=== PATIENT | male | born 1980 | race Caucasian/White ===

== ENCOUNTER 2019-01-11 22:06 | Inpatient (IN) | payer OTHER ==
[~2019-01-11] VITALS: Ht 165.1 cm; Wt 104.1 kg
[2019-01-11 22:23] VITALS: Ht 165.1 cm; Wt 104.1 kg
[2019-01-11 23:07] LABS: BASOPHIL % 0.4 % (0-2); PLATELET COUNT 199 x10^3mcL (130-400)
[2019-01-11 23:17] LABS: CALCIUM 9.1 mg/dL (8.5-10.1); CARBON DIOXIDE 30.3 mmol/L (21-32); CHLORIDE SERUM 101 mmol/L (98-107); CREATININE SERUM 0.9 mg/dL (0.7-1.3); GFR1 > 60 mL/min; GLUCOSE SERUM 110 mg/dL (74-106); POTASSIUM SERUM 4.3 mmol/L (3.5-5.1); SODIUM SERUM 139 mmol/L (136-145)
[2019-01-11 23:19] LABS: ALBUMIN 3.9 g/dL (3.4-5.0); ALKALINE PHOSPHATASE 52 U/L (46-116); ALT/SGPT 26 U/L (16-63); AST/SGOT 13 U/L (15-37); BILIRUBIN TOTAL 0.5 mg/dL (0.20-1.00); LIPASE 165 IU/L (73-393); TOTAL PROTEIN, SERUM 7.8 g/dL (6.4-8.2)
[2019-01-11 23:32] LABS: RED CELL DISTRIBUTION WIDTH 14.6 % (11.5-14.5)
[2019-01-11 23:42] LABS: AMPHETAMINE QUAL UR NONE DETECTED (See below)
[2019-01-12] MEDS ORDERED: ISOSORBIDE MONO60 MG PO (01:01)
[2019-01-12] MEDS ORDERED: VIT D3 PO (01:01)
[2019-01-12] MEDS ORDERED: CRESTOR40 M1 PO (01:01)
[2019-01-12] MEDS ORDERED: CLARITIN LIQUI-10 MG PO (01:02)
[2019-01-12] MEDS ORDERED: ASPIR 8181 MG PO (01:02)
[2019-01-12] MEDS ORDERED: PROTONIX40 MG PO (01:02)
[2019-01-12] MEDS ORDERED: BRILINTA90 M1 PO (01:02)
[2019-01-12] MEDS ORDERED: HYDROCHLOROTHIA25 MG PO (01:02)
[2019-01-12] MEDS ORDERED: CARTIA XT240 M1 PO (01:03)
[2019-01-12 02:05] LABS: MAGNESIUM 2.3 mg/dL (1.8-2.4); PHOSPHOROUS 3.6 mg/dL (2.5-4.9)
[2019-01-12 02:10] VITALS: BP 125/64
[2019-01-12 05:34] LABS: microscopic required? NO
[2019-01-12 05:46] VITALS: BP 131/75
[2019-01-12 05:54] LABS: UA SPECIFIC GRAVITY 1.025 (1.005-1.035); urine erythrocyte NEGATIVE (NEGATIVE)
[2019-01-12 06:21] LABS: BASOPHIL % 0.4 % (0-2); PLATELET COUNT 169 x10^3mcL (130-400)
[2019-01-12 06:38] LABS: RED CELL DISTRIBUTION WIDTH 14.7 % (11.5-14.5)
[2019-01-12 06:40] LABS: CALCIUM 8.9 mg/dL (8.5-10.1); CHLORIDE SERUM 105 mmol/L (98-107); CREATININE SERUM 0.8 mg/dL (0.7-1.3); GFR1 > 60 mL/min; GLUCOSE SERUM 100 mg/dL (74-106); MAGNESIUM 2.4 mg/dL (1.8-2.4); PHOSPHOROUS 4.3 mg/dL (2.5-4.9); POTASSIUM SERUM 4.4 mmol/L (3.5-5.1); SODIUM SERUM 142 mmol/L (136-145)
[2019-01-12 09:21] VITALS: BP 116/58
[2019-01-12 12:34] VITALS: BP 101/43
[2019-01-12 16:29] VITALS: BP 100/44
[2019-01-12 21:16] VITALS: BP 108/40
[2019-01-13 05:53] VITALS: BP 103/48
[2019-01-13 06:35] LABS: BASOPHIL % 0.4 % (0-2); PLATELET COUNT 141 x10^3mcL (130-400)
[2019-01-13 06:43] LABS: RED CELL DISTRIBUTION WIDTH 14.8 % (11.5-14.5)
[2019-01-13 06:45] LABS: CALCIUM 8.2 mg/dL (8.5-10.1); CARBON DIOXIDE 29.3 mmol/L (21-32); CHLORIDE SERUM 106 mmol/L (98-107); CREATININE SERUM 0.6 mg/dL (0.7-1.3); GFR1 > 60 mL/min; GLUCOSE SERUM 93 mg/dL (74-106); POTASSIUM SERUM 4.2 mmol/L (3.5-5.1); SODIUM SERUM 141 mmol/L (136-145)
[2019-01-13 10:34] VITALS: BP 111/49
[2019-01-13 14:20] VITALS: BP 103/45
[2019-01-13 17:47] VITALS: BP 103/51
[2019-01-13 20:41] VITALS: BP 110/43
[2019-01-14 05:17] VITALS: BP 108/61
[2019-01-14 06:41] LABS: CALCIUM 8.5 mg/dL (8.5-10.1); CARBON DIOXIDE 31.7 mmol/L (21-32); CHLORIDE SERUM 106 mmol/L (98-107); CREATININE SERUM 0.8 mg/dL (0.7-1.3); GFR1 > 60 mL/min; GLUCOSE SERUM 95 mg/dL (74-106); POTASSIUM SERUM 4.5 mmol/L (3.5-5.1); SODIUM SERUM 142 mmol/L (136-145)
[2019-01-14 07:17] LABS: BASOPHIL % 0.5 % (0-2); PLATELET COUNT 148 x10^3mcL (130-400); RED CELL DISTRIBUTION WIDTH 13.8 % (11.5-14.5)
[2019-01-14 09:30] VITALS: BP 105/52
[2019-01-14 13:30] VITALS: BP 114/67
[2019-01-14 17:41] VITALS: BP 103/55
[2019-01-14 20:21] VITALS: BP 127/59
[2019-01-15 04:59] VITALS: BP 113/51
[2019-01-15 06:42] LABS: BASOPHIL % 0.3 % (0-2)
[2019-01-15 06:45] LABS: PLATELET COUNT 128 x10^3mcL (130-400); RED CELL DISTRIBUTION WIDTH 14.7 % (11.5-14.5)
[2019-01-15 08:04] LABS: CALCIUM 8.9 mg/dL (8.5-10.1); CARBON DIOXIDE 30.9 mmol/L (21-32); CHLORIDE SERUM 109 mmol/L (98-107); CREATININE SERUM 0.8 mg/dL (0.7-1.3); GFR1 > 60 mL/min; GLUCOSE SERUM 92 mg/dL (74-106); POTASSIUM SERUM 5.1 mmol/L (3.5-5.1); SODIUM SERUM 143 mmol/L (136-145)
[2019-01-15 08:35] VITALS: BP 129/79
[2019-01-15 12:51] VITALS: BP 100/56
[2019-01-15 14:25] VITALS: BP 100/56
== END 2019-01-15 14:54 | disposition home or self-care (01) | DRG 198 ==
LOC: ED 22:06 → DU 01-12 00:47
PROVIDERS: Emergency Medicine; General Practice; ADMIT Internal Medicine
DX: R07.9 Chest pain, unspecified (principal); I25.2 Old myocardial infarction; N17.0 Acute kidney failure with tubular necrosis; R10.9 Unspecified abdominal pain; E66.9 Obesity, unspecified; E78.5 Hyperlipidemia, unspecified; Z68.38 Body mass index [BMI] 38.0-38.9, adult; Z95.5 Presence of coronary angioplasty implant and graft; Z86.73 Personal history of transient ischemic attack (TIA), and cerebral infarction without residual deficits; Z79.82 Long term (current) use of aspirin; R00.1 Bradycardia, unspecified
CPT/HCPCS: 83880; A9500; J2270; J2405; J2785; J7030; Q0092; Q9967